=== PATIENT | female | born 1960 | race Caucasian/White ===

== ENCOUNTER 2019-09-26 09:36 | Outpatient (CLI) | payer MEDICARE, MEDICAID, SELFPAY ==
--- NOTE | 2019-09-26 09:44 | MM_ITS ---
WS: [id number] BILATERAL DIGITAL SCREENING MAMMOGRAPHY WITH CAD CLINICAL INFORMATION: SCREENING HISTORY: Screening mammogram. No current complaints. COMPARISON: June 18, 2017 TECHNIQUE: Bilateral CC and MLO views. FINDINGS: Scattered fibroglandular densities bilaterally. No suspicious focal mass, asymmetry, calcifications, or architectural distortion. Stable intramammary lymph nodes. No evidence of malignancy. MM/[place] [id number] IMPRESSION: BI-RADS: 2-Benign FOLLOW UP: 1 Year Follow-up Recommend return to annual screening mammography.
== END 2019-09-26 09:37 | disposition home or self-care (01) ==
LOC: RADSHAW 09:41
PROVIDERS: PCP Family Medicine; Visit Provider Family Medicine
DX: Z12.31 Encounter for screening mammogram for malignant neoplasm of breast (principal)
CPT/HCPCS: 77067

== ENCOUNTER 2021-02-25 10:05 | Outpatient (CLI) | payer MEDICARE, MEDICAID, SELFPAY ==
--- NOTE | 2021-02-25 10:13 | MM_ITS ---
WS: [id number] BILATERAL DIGITAL SCREENING MAMMOGRAPHY WITH CAD CLINICAL INFORMATION: SCREENING HISTORY: Screening mammogram. No current complaints. COMPARISON: September 26, 2019 TECHNIQUE: Bilateral CC and MLO views. FINDINGS: Scattered fibroglandular densities bilaterally. Stable benign punctate calcifications. Stable intrama mmary lymph nodes. No suspicious focal mass, asymmetry, calcifications, or architectural distortion. No evidence of malignancy. MM/[place] [id number] IMPRESSION: BI-RADS: 2-Benign FOLLOW UP: 1 Year Follow-up Recommend return to annual screening mammography.
== END 2021-02-25 10:06 | disposition home or self-care (01) ==
LOC: RADSHAW 10:11
PROVIDERS: PCP Family Medicine; Visit Provider Family Medicine
DX: Z12.31 Encounter for screening mammogram for malignant neoplasm of breast (principal)
CPT/HCPCS: 77067

== ENCOUNTER 2021-07-08 06:24 | Outpatient (CLI) | payer MEDICARE, MEDICAID, SELFPAY ==
--- NOTE | 2021-07-08 06:38 | US_ITS ---
WS: [id number] RENAL ULTRASOUND HISTORY: PROTEINURIA, DIABETES MELLITUS TYPE 2 COMPARISON: None. Technically limited evaluation due to body habitus. TECHNIQUE: 2-D and color Doppler imaging of the kidney submitted. Right kidney: 9.7 cm x 4.7 cm x 5.9 cm. Normal size kidney. There is minimal thinning of the renal cortex. Cortex measures 1.0 cm. No mass or hydronephrosis. Left kidney: 9.5 cm x 3.7 cm x 5.0 cm. Normal size kidney. No hydronephrosis. Cortex is normal at 1.1 cm. No mass. Aorta: Normal. Urinary Bladder: Minimally distended and visualized due to body habitus. US/US renal BI* [id number] IMPRESSION: 1. No hydronephrosis or renal mass identified. 2. Very mild thinning RIGHT renal cortex.
== END 2021-07-08 06:25 | disposition home or self-care (01) ==
LOC: RAD 06:26
PROVIDERS: PCP Family Medicine; Visit Provider Family Medicine
DX: R80.9 Proteinuria, unspecified (principal); E11.21 Type 2 diabetes mellitus with diabetic nephropathy; I10 Essential (primary) hypertension
CPT/HCPCS: 76770

== ENCOUNTER 2021-09-02 09:09 | Outpatient (CLI) | payer MEDICARE, MEDICAID, SELFPAY ==
[2021-09-02 10:06] LABS: Basophils # 0.1 10^3/uL (0.0-0.1); Basophils % 0.9 %; Eosinophils # 0.2 10^3/uL (0.0-0.8); Eosinophils % 2.5 %; Hematocrit 45.1 % (37.0-47.0); Hemoglobin 14.3 g/dL (11.5-15.3); Lymphocytes # 2.2 10^3/uL (0.8-4.8); Lymphocytes % 34.6 %; Mean Corpuscular HGB Conc 31.7 g/dL (30.0-36.0); Mean Corpuscular Hemoglobin 29.6 pg (28.0-34.0); Mean Corpuscular Volume 93.4 fl (81-99); Mean Platelet Volume 10.8 fL (7.4-10.4); Monocytes # 0.6 10^3/uL (0.2-0.9); Monocytes % 8.7 %; Neutrophils # 3.42 10^3/uL (1.8-7.7); Neutrophils % 52.8 %; Nucleated Red Blood Cells % 0 %; Platelet Count 296 10^3/cmm (130-400); Red Blood Count 4.83 10^6/uL (4.1-5.3); White Blood Count 6.5 10^3/uL (4.0-10.0)
[2021-09-02 10:46] LABS: Alanine Aminotransferase 12 U/L (0-33); Albumin Level 3.9 g/dL (3.5-5.2); Alkaline Phosphatase 109 IU/L (35-105); Anion Gap 14.6 (5-19); Aspartate Amino Transferase 19 U/L (0-32); Blood Urea Nitrogen 17 mg/dL (6-20); Carbon Dioxide 25 mmol/L (22-29); Chloride 101 mmol/L (98-107); Globulin 3.9 g/dL (1.3-4.6); Glucose 113 mg/dL (65-115); Osmolality Calculated 284 mOsm/kg (285-295); Phosphorus 3.5 mg/dL (2.5-4.5); Potassium 4.6 mmol/L (3.5-5.1); Sodium 136 mmol/L (136-145); Total Bilirubin 0.4 mg/dL (0.15-1.2); Total Protein 7.8 g/dL (6.6-8.7)
[2021-09-02 11:14] LABS: Parathyroid Hormone 74.2 pg/mL (15-65)
[2021-09-02 11:18] LABS: 25 Hydroxy Vitamin D > 100 ng/mL (30-100)
== END 2021-09-02 09:10 | disposition home or self-care (01) ==
PROVIDERS: PCP Family Medicine; Visit Provider Internal Medicine Cardiovascular Disease
DX: R80.9 Proteinuria, unspecified (principal)
CPT/HCPCS: 80053; 82306; 82310; 83970; 84100; 85025

== ENCOUNTER 2021-09-03 15:16 | Outpatient (CLI) | payer MEDICARE, MEDICAID, SELFPAY ==
[2021-09-03 18:02] LABS: Collection Time Urine 1420; Total Volume Urine 2700 ml
[2021-09-03 18:08] LABS: Urine Creatinine 61 mg/dL (28-217)
[2021-09-03 18:13] LABS: Creatinine Urine, Random 60 mg/dL (28-217); Microalbumin Random Urine 3 ug/dL (0-20)
[2021-09-03 18:25] LABS: Microalbum Creatinine Ratio Ur 50 mg/dL (0-20)
[2021-09-03 18:40] LABS: Phosphorus 24 HR Urine 54.8 g/24 HR (0.4-1.3); Phosphorus Urine 20.3 mg/dL
[2021-09-03 18:54] LABS: Urea Nitrogen,Urine Random 203 mg/dL
[2021-09-03 19:21] LABS: Bilirubin Urine Neg (Negative); Blood Urine Neg (Negative); Glucose Urine UA Norm (Normal); Ketones Urine Negative (Negative); Leukocyte Esterase Urine Negative (Negative); Nitrate Urine Negative (Negative); Protein Urine Neg (Negative); Specific Gravity, Urine 1.005 (1.005-1.030); Urine Appearance Clear (CLEAR); Urine Color Yellow (Yellow); Urobilinogen Urine Norm (Negative); pH Urine 7 (5-7)
[2021-09-03 19:22] LABS: Bacteria Urine TRACE /hpf; Squamous Epithelial Cell Urine 0-4 /hpf (0-5); WBC Urine 0-4 /hpf (0-5)
[2021-09-03 19:24] LABS: Add Urine Culture? No
== END 2021-09-03 15:17 | disposition home or self-care (01) ==
LOC: LAB 15:19
PROVIDERS: PCP Family Medicine; Visit Provider Family Medicine
DX: Z01.89 Encounter for other specified special examinations (principal)
CPT/HCPCS: 81001; 82044; 82570; 84105; 84540

== ENCOUNTER 2021-10-04 10:34 | Outpatient (CLI) | payer MEDICARE, MEDICAID, SELFPAY ==
[2021-10-04 11:31] LABS: Glomerular Filtration Rate 56.7 mL/min (90-130)
[2021-10-04 11:35] LABS: Urine Creatinine 56 mg/dL (28-217); Urine Protein Random 11 mg/dL
[2021-10-04 11:57] LABS: Total Volume Urine 2250 ml
[2021-10-04 11:58] LABS: Creatinine Clearance, Urine 90 mL/Min (88-128); Creatinine, Urine (Cre Clear) 56 mg/dL (28-217); Patient Weight 342.4 Lbs
== END 2021-10-04 10:35 | disposition home or self-care (01) ==
LOC: LAB 10:35
PROVIDERS: PCP Family Medicine; Visit Provider Family Medicine
DX: Z01.89 Encounter for other specified special examinations (principal)
CPT/HCPCS: 36415; 82570; 82575; 84156; 84540

== ENCOUNTER → 2021-11-18 08:37 | Outpatient (BNVA) | payer MEDICARE, MEDICAID, SELFPAY | PROVIDERS: PCP Family Medicine; Visit Provider Nurse Practitioner Women's Health | DX: Z01.419 Encounter for gynecological examination (general) (routine) without abnormal findings (principal); E66.9 Obesity, unspecified | CPT/HCPCS: 87624 ==

== ENCOUNTER → 2021-11-27 07:50 | Outpatient (BNVA) | payer MEDICARE, MEDICAID, SELFPAY | PROVIDERS: PCP Family Medicine; Visit Provider Nurse Practitioner Women's Health | DX: R89.6 Abnormal cytological findings in specimens from other organs, systems and tissues (principal) | CPT/HCPCS: 76830 ==

== ENCOUNTER 2022-02-13 13:04 | Outpatient (CLI) | payer MEDICARE, MEDICAID, SELFPAY ==
[2022-02-13 18:43] LABS: Sodium, Urine Result 109 mmol/L; Urine Creatinine 112 mg/dL (28-217)
[2022-02-13 18:48] LABS: Microalbumin Result 23.2 mg/dL
[2022-02-13 18:50] LABS: Microalbumin 24 Hour Result 232 mg/24HR (0-30); Microalbumin Total Volume 1000 mL; Total Volume Urine 1000 ml; Total Volume, Urine 1000 mL
[2022-02-15 09:48] LABS: CREATININE, 24 HOUR URINE 1.08 g/24 h (0.50-2.15); PROTEIN, TOTAL, 24 HR UR 390 mg/24 h (<150); Protein/Creatinine Ratio 0.361 (<0.150); Protein/Creatinine Ratio 361 mg/g creat (<150)
[2022-02-17 15:57] LABS: ALBUMIN 77 %; ALPHA-1-GLOBULINS 3 %; ALPHA-2-GLOBULINS 3 %; BETA GLOBULINS 13 %; GAMMA GLOBULINS 4 %
== END 2022-02-13 13:05 | disposition home or self-care (01) ==
PROVIDERS: Internal Medicine; PCP Family Medicine; Visit Provider Internal Medicine Nephrology
DX: I12.9 Hypertensive chronic kidney disease with stage 1 through stage 4 chronic kidney disease, or unspecified chronic kidney disease (principal); N18.30 Chronic kidney disease, stage 3 unspecified
CPT/HCPCS: 81001; 82043; 82570; 84166; 84300; 86335

== ENCOUNTER 2022-02-17 09:25 | Outpatient (CLI) | payer MEDICARE, MEDICAID, SELFPAY ==
[2022-02-17 09:54] LABS: Basophils % 0.8 %; Eosinophils % 2.9 %; Hematocrit 43.3 % (37.0-47.0); Hemoglobin 14.1 g/dL (11.5-15.3); Lymphocytes % 43.5 %; Mean Corpuscular HGB Conc 32.6 g/dL (30.0-36.0); Mean Corpuscular Hemoglobin 30.7 pg (28.0-34.0); Mean Corpuscular Volume 94.1 fl (81-99); Monocytes % 5.9 %; Neutrophils % 46.7 %; Platelet Count 242 10^3/cmm (130-400); Red Cell Distribution Width 12.6 % (12.1-15.1)
[2022-02-17 09:55] LABS: Basophils # 0.1 10^3/uL (0.0-0.1); Eosinophils # 0.2 10^3/uL (0.0-0.8); Lymphocytes # 2.6 10^3/uL (0.8-4.8); Monocytes # 0.4 10^3/uL (0.2-0.9); Neutrophils # 2.78 10^3/uL (1.8-7.7); Nucleated Red Blood Cells % 0 %
[2022-02-17 10:12] LABS: Anion Gap 14.2 (5-19); Blood Urea Nitrogen 10 mg/dL (6-20); Calcium 9.5 mg/dL (8.5-10.5); Carbon Dioxide 26 mmol/L (22-29); Chloride 102 mmol/L (98-107); Glomerular Filtration Rate 56.7 mL/min (90-130); Glucose 95 mg/dL (65-115); Magnesium 1.7 mg/dL (1.7-2.3); Osmolality Calculated 285 mOsm/kg (285-295); Potassium 4.2 mmol/L (3.5-5.1); Sodium 138 mmol/L (136-145)
== END 2022-02-17 09:26 | disposition home or self-care (01) ==
LOC: LAB 09:25
PROVIDERS: Internal Medicine; PCP Family Medicine; Visit Provider Internal Medicine Nephrology
DX: R80.9 Proteinuria, unspecified (principal); N18.30 Chronic kidney disease, stage 3 unspecified; I10 Essential (primary) hypertension
CPT/HCPCS: 80048; 83735; 85025

== ENCOUNTER 2022-05-26 08:36 | Outpatient (CLI) | payer MEDICARE, MEDICAID, SELFPAY ==
--- NOTE | 2022-05-26 09:00 | MM_ITS ---
WS: [id number] BILATERAL SCREENING DIGITAL TOMOSYNTHESIS MAMMOGRAM WITH CAD HISTORY: Z12.39 - Encounter for other screening for malignant neop... COMPARISON: 02/25/2021, 09/26/2019 Bilateral CC and MLO views with tomosynthesis and synthetic mammography submitted. Computer aided det ection analyzed. Breast composition: There are scattered areas of fibroglandular density. No suspicious masses, microc alcifications or architectural distortion. Stable bilateral breast. Small intramammary lymph nodes an d calcifications. MM/[place] [id number] IMPRESSION: BI-RADS: 2-Benign FOLLOW UP: 1 Year Follow-up
== END 2022-05-26 08:37 | disposition home or self-care (01) ==
LOC: RAD 08:39
PROVIDERS: PCP Family Medicine; Visit Provider Family Medicine
DX: Z12.31 Encounter for screening mammogram for malignant neoplasm of breast (principal)
CPT/HCPCS: 77063; 77067

== ENCOUNTER 2022-09-01 11:16 | Outpatient (CLI) | payer MEDICARE, MEDICAID, SELFPAY ==
[2022-09-01 17:33] LABS: Urine Total Protein 7.9 mg/dL (0-150)
[2022-09-01 18:10] LABS: Total Volume, Urine 825 mL; Urine Total Protein 24 Hour 65.2 mg/24hr (0-150)
[2022-09-01 18:11] LABS: Total Volume 825 mL
== END 2022-09-01 11:17 | disposition home or self-care (01) ==
PROVIDERS: PCP Family Medicine; Visit Provider Internal Medicine Nephrology
DX: Z03.89 Encounter for observation for other suspected diseases and conditions ruled out (principal)
CPT/HCPCS: 84156; 84540

== ENCOUNTER → 2022-12-08 11:00 | Outpatient (BNVA) | payer MEDICARE, MEDICAID, SELFPAY | PROVIDERS: PCP Family Medicine; Visit Provider Nurse Practitioner Women's Health | DX: Z12.4 Encounter for screening for malignant neoplasm of cervix (principal) | CPT/HCPCS: 87624 ==

== ENCOUNTER 2023-05-28 09:37 | Outpatient (CLI) | payer MEDICARE, MEDICAID, SELFPAY ==
--- NOTE | 2023-05-28 09:50 | MM_ITS ---
WS: [id number] SCREENING DIGITAL TOMOSYNTHESIS MAMMOGRAM WITH CAD HISTORY: SCREENING COMPARISON: 05/26/2022, 02/25/2021 Bilateral CC and MLO with tomosynthesis views submitted. Synthetic mammography reviewed. Computer aid ed detection analyzed. Breast composition: There are scattered areas of fibroglandular density. No suspicious masses, microc alcifications or architectural distortion. Well-circumscribed mass in the posterior LEFT breast is pr obably a lymph node. This has been present on several prior studies. IMPRESSION: MM/[place] [id number] BI-RADS: 2-Benign FOLLOW UP: 1 Year Follow-up
== END 2023-05-28 09:38 | disposition home or self-care (01) ==
LOC: RAD 09:38
PROVIDERS: PCP Family Medicine; Visit Provider Family Medicine
DX: Z12.31 Encounter for screening mammogram for malignant neoplasm of breast (principal); R92.323 Mammographic fibroglandular density, bilateral breasts; N63.20 Unspecified lump in the left breast, unspecified quadrant
CPT/HCPCS: 77063; 77067

== ENCOUNTER 2023-11-04 11:19 | Outpatient (CLI) | payer MEDICAID, OTHER, SELFPAY ==
--- NOTE | 2023-11-04 11:36 | XRR_ITS ---
PROCEDURE INFORMATION: Exam: XR Left Knee Exam date and time: 11/04/2023 11:50 AM Age: 63 years old Clinical indication: Left; Patient HX: Lt knee pain that radiates upward x 5 days, no specific injury; Additional info: L knee pain TECHNIQUE: Imaging protocol: Radiologic exam of the left knee. Views: 3 views. COMPARISON: CR XR foot LT min 3V* [id number] 03/09/2019 9:41 AM FINDINGS: Bones/joints: Normal. Soft tissues: Normal. XR/XR knee LT 3V* [id number] IMPRESSION: No acute findings.
== END 2023-11-04 11:20 | disposition home or self-care (01) ==
LOC: RAD 11:26
PROVIDERS: PCP Family Medicine; Visit Provider Family Medicine
DX: M25.562 Pain in left knee (principal)
CPT/HCPCS: 73562

== ENCOUNTER 2024-02-29 18:21 | Emergency (ER) | payer MEDICARE, MEDICAID, SELFPAY ==
--- NOTE | 2024-02-29 18:26 | XRR_ITS ---
PROCEDURE INFORMATION: Exam: XR Right Foot Exam date and time: 02/29/2024 6:43 PM Age: 63 years old Clinical indication: Pain; Foot; Right; Additional info: Injury TECHNIQUE: Imaging protocol: Radiologic exam of the right foot. Views: 3 or more views. COMPARISON: CR (LOW EXM, ) 02/29/2024 6:43 PM FINDINGS: Bones/joints: Nondisplaced fracture along the distal aspect of the 5th metatarsal. No definite intra-articular extension. No dislocation. Soft tissues: Normal. XR/XR foot RT min 3V* [id number] IMPRESSION: Nondisplaced 5th metatarsal shaft fracture.
--- NOTE | 2024-02-29 18:26 | XRR_ITS ---
PROCEDURE INFORMATION: Exam: XR Right Ankle Exam date and time: 02/29/2024 6:43 PM Age: 63 years old Clinical indication: Pain; Ankle; Right; Additional info: Fall TECHNIQUE: Imaging protocol: Radiologic exam of the right ankle. Views: 3 or more views. COMPARISON: CR XR foot RT min 3V* [id number] 02/29/2024 6:43 PM FINDINGS: Bones/joints: No acute fracture or dislocation. Tiny posterior calcaneal enthesophyte. Soft tissues: Normal. XR/XR ankle RT min 3V* [id number] IMPRESSION: No acute findings.
[2024-02-29 18:57] VITALS: BP 172/84; PULSE 76; RESP 17; TEMP 36.6; O2SAT 99; BMI 58.4
--- NOTE | 2024-02-29 20:17 | ED_ITS ---
HPI - Fall General: Chief Complaint: Fall Stated Complaint: right foot injury from fall Time Seen by Provider: 02/29/24 18:50 History of Present Illness: Patient was at [facility] today and was tried get on exam table and fell forward. Some pain in her right foot laterally midfoot. No other injuries. No head injury. No loss of consciousness. She is neurovascularly intact. She says she had broke her foot before and when she had a cast within 24 hours her whole leg look like chopped meat . Related Data Home Medications Medication Instructions Recorded Confirmed amlodipine 10 mg tablet 10 mg PO DAILY 05/31/19 02/29/24 aspirin 81 mg tablet,delayed 81 mg PO DAILY 05/31/19 02/29/24 release dulaglutide 0.75 mg/0.5 mL SUBCUT 05/31/19 02/29/24 subcutaneous pen injector (Trulicity) lisinopril 40 mg tablet 40 mg PO DAILY 05/31/19 02/29/24 topiramate 100 mg tablet (Topamax) 100 mg PO DAILY 05/31/19 02/29/24 albuterol sulfate 2.5 mg/3 mL 2.5 mg inhalation Q4H PRN 11/18/21 02/29/24 (0.083 %) solution for nebulization atorvastatin 40 mg tablet 40 mg PO DAILY 11/18/21 02/29/24 cetirizine 10 mg tablet (24Hour 10 mg PO DAILY PRN 11/18/21 02/29/24 Allergy) glipizide 2.5 mg tablet, extended 2.5 mg PO DAILY 12/08/22 02/29/24 release 24 hr hydrochlorothiazide 25 mg tablet 12.5 mg PO DAILY 02/29/24 02/29/24 Previous Rx's Medication Instructions Recorded hydrocodone 5 mg-acetaminophen 325 1 tab PO Q8H PRN pain #14 tabs 02/29/24 mg tablet polyethylene glycol 3350 17 17 g PO DAILY #510 grams 02/29/24 gram/dose oral powder (Miralax) Allergies Allergy/AdvReac Type Severity Reaction Status Date / Time codeine Allergy ADR-Drowsy Verified 02/29/24 19:07 Review of Systems Narrative: Constitutional symptoms: Negative except as documented in HPI. Skin symptoms: Negative except as documented in HPI. Eye symptoms: Negative except as documented in HPI. ENMT symptoms: Negative except as documented in HPI. Respiratory symptoms: Negative except as documented in HPI. Cardiovascular symptoms: Negative except as documented in HPI. Gastrointestinal symptoms: Negative except as documented in HPI. Genitourinary symptoms: Negative except as documented in HPI. Musculoskeletal symptoms: Negative except as documented in HPI. Neurologic symptoms: Negative except as documented in HPI. Psychiatric symptoms: Negative except as documented in HPI. Endocrine symptoms: Negative except as documented in HPI. PFSH ED PFSH: Medical History Asthma CVA (cerebral vascular accident) (~03/1999) Dyslipidemia Hammertoe, bilateral Hypertension No pertinent past medical history neghx: thyroid,dvt/pe PCP: [facility] Obesity Pes planus of both feet Tailor's bunionette, bilateral Type 2 diabetes mellitus with diabetic polyneuropathy Surgical History History of conization of cervix She is not sure but she thinks she has had a procedure done on her cervix at the age of 32 for an abnormal Pap smear. Reports normal Pap smears since then Hx laparoscopic cholecystectomy (~1990) Hx of tonsillectomy at age 15 Family History Sister Cervical cancer dx age 30's Father Diabetes Heart disease Grandfather Heart disease Maternal Mother Thyroid disease thyroid cancer Denies family history of Colon cancer Ovarian cancer Hypercholesteremia Breast cancer Hypertension Uterine cancer Stroke Physical Exam Narrative: EXAM NARRATIVE: General: Alert, no acute distress. Skin: warm and dry Head: Normocephalic Neck: Trachea midline Eye: Extraocular movements are intact. Ears, nose, mouth and throat: Oral mucosa moist Respiratory: Respirations are non-labored Musculoskeletal: Pain to palpation of the lateral mid right foot. No obvious deformity. Neurovascularly intact. Neurological: Alert and oriented, No focal neurological deficit observed. Psychiatric: Cooperative, appropriate mood & affect. Course Vital Signs: Vital signs: Vital Signs Temperature 97.9 F 02/29/24 18:57 Pulse Rate 76 02/29/24 18:57 Respiratory Rate 17 02/29/24 18:57 Blood Pressure 172/84 02/29/24 18:57 Pulse Oximetry 99 02/29/24 18:57 Oxygen Delivery Me thod Room Air 02/29/24 18:57 MDM - Fall Medical Decision Making X-ray of the right foot shows a midshaft metatarsal fracture of the fifth metatarsal. This was reviewed and interpreted by myself the emergency room kaley harris. I also reviewed the radiology report. Consultation: I spoke with Dr. Davidson about the patient as she had had complications with the splint in the past and he recommends a postsurgical shoe. Assessment and plan: Right fifth metatarsal fracture ?Graettinger and postsurgical shoe placement - Discharged home - Discussed plan with patient. Answered any questions. - Evaluation and treatment of this problem were appropriate in the emergency setting. Lab Data Radiology Impressions Ankle X-Ray 02/29/24 18:26 IMPRESSION: No acute findings. Foot X-Ray 02/29/24 18:26 IMPRESSION: Nondisplaced 5th metatarsal shaft fracture. All radiology interpretation(s) finalized by discharge Discharge Plan Discharge Patient Disposition: Home Clinical Impression: Fracture of fifth metatarsal bone of right foot Qualifiers: Encounter type: initial encounter Fracture type: closed Fracture alignment: nondisplaced Qualified Code(s): S92.354A - Nondisplaced fracture of fifth metatarsal bone, right foot, initial encounter for closed fracture Condition: Stable Prescriptions: New hydrocodone-acetaminophen 5-325 mg tablet 1 tab PO Q8H PRN (Reason: pain) Qty: 14 0RF Rx Instructions: Take 1/2 to 1 tab every 8 hours as needed for pain polyethylene glycol 3350 [Miralax] 17 gram/dose powder 17 g PO DAILY Qty: 510 0RF Rx Instructions: Take 1 scoop daily while taking pain medications. No Action topiramate [Topamax] 100 mg tablet 100 mg PO DAILY lisinopril 40 mg tablet 40 mg PO DAILY aspirin 81 mg tablet,delayed release (DR/EC) 81 mg PO DAILY amlodipine 10 mg tablet 10 mg PO DAILY Trulicity 0.75 mg/0.5 mL pen injector SUBCUT hydrochlorothiazide 25 mg tablet 12.5 mg PO DAILY glipizide 2.5 mg tablet extended release 24hr 2.5 mg PO DAILY cetirizine [24Hour Allergy] 10 mg tablet 10 mg PO DAILY PRN atorvastatin 40 mg tablet 40 mg PO DAILY albuterol sulfate 2.5 mg /3 mL (0.083 %) solution for nebulization 2.5 mg inhalation Q4H PRN Discharge Orders: Discharge ED (Routine); Ordered 02/29/24 Ordered By: Odilia Clark Referrals: Mukund Dc MD [Primary Care Provider] - Stevie Davidson DPM [Physician] - 4-7 days (Please follow-up with Dr. Davidson or Dr. Hay for the next 3 to 5 days) Discharge Diet: Usual diet Discharge Activity: Limit activity as instructed Patient Instructions: Opioid Safety, Pain Management Activity Restrictions/Additional Instructions: Thank you for choosing [facility] for your healthcare needs today. Please realize this is an emergency room and that we are providing you with a medical screening exam and this may not be complete and all inclusive of all the testing and or work up that you may need to determine your ailment or severity of your illness. You have been screened and evaluated and felt safe for discharge. Health conditions do change or evolve sometimes and as such it is important that you follow up with your Primary Doctor to be re checked, 3-5 days is a general good time frame for follow up. You are always welcome to return to the ED for re assessment if your symptoms are worsening or you have new concerns Coding Level of Care Code ED Family Practice Medical Doctor for Tori Roper
--- NOTE | 2024-02-29 20:34 | PC.NURSE ---
post op shoe was placed on the pts right foot at this time
[2024-02-29 22:16] VITALS: BP 163/79; PULSE 71; RESP 18; O2SAT 99
== END 2024-02-29 22:18 | disposition home or self-care (01) ==
PROVIDERS: Emergency Provider Emergency Medicine; PCP Family Medicine
DX: S92.354A Nondisplaced fracture of fifth metatarsal bone, right foot, initial encounter for closed fracture (principal); Z79.82 Long term (current) use of aspirin; E11.42 Type 2 diabetes mellitus with diabetic polyneuropathy; Z86.73 Personal history of transient ischemic attack (TIA), and cerebral infarction without residual deficits; I10 Essential (primary) hypertension; W19.XXXA Unspecified fall, initial encounter
CPT/HCPCS: 73610; 73630; 99283

== ENCOUNTER → 2024-03-20 13:16 | Outpatient (BNVA) | payer MEDICARE, MEDICAID, SELFPAY | PROVIDERS: PCP Family Medicine; Visit Provider Podiatrist Foot & Ankle Surgery | DX: E11.42 Type 2 diabetes mellitus with diabetic polyneuropathy; S92.351A Displaced fracture of fifth metatarsal bone, right foot, initial encounter for closed fracture; W17.89XA Other fall from one level to another, initial encounter; Y92.531 Health care provider office as the place of occurrence of the external cause | CPT/HCPCS: 73630; 99203 ==

== ENCOUNTER → 2024-04-10 13:30 | Outpatient (BNVA) | payer MEDICARE, MEDICAID, SELFPAY | PROVIDERS: PCP Family Medicine; Visit Provider Podiatrist Foot & Ankle Surgery | DX: M79.671 Pain in right foot (principal); E11.42 Type 2 diabetes mellitus with diabetic polyneuropathy; S92.351A Displaced fracture of fifth metatarsal bone, right foot, initial encounter for closed fracture; X58.XXXA Exposure to other specified factors, initial encounter | CPT/HCPCS: 73630; 99213 ==

== ENCOUNTER → 2024-05-26 14:35 | Outpatient (BNVA) | payer MEDICARE, MEDICAID, SELFPAY | PROVIDERS: PCP Family Medicine; Visit Provider Nurse Practitioner Women's Health | DX: R53.83 Other fatigue (principal) | CPT/HCPCS: 82306; 84439; 84443 ==

== ENCOUNTER 2024-05-29 08:44 | Outpatient (CLI) | payer MEDICARE, MEDICAID, SELFPAY ==
--- NOTE | 2024-05-29 08:46 | MM_ITS ---
WS: [id number] SCREENING DIGITAL BREAST TOMOSYNTHESIS MAMMOGRAM WITH CAD HISTORY: Z12.31 - Encounter for screening mammogram for malignant ... COMPARISON: 05/28/2023, 05/26/2022 and 02/25/2021 Bilateral CC and MLO with tomosynthesis and synthetic mammography submitted. Computer aided detection analyzed. Breast composition: There are scattered areas of fibroglandular density. Incomplete inclusion of all of the axillary tail. The remaining breast demonstrate normal parenchymal pattern with a few scattered calcifications. No new masses are identified. There is no distortion. No nipple retraction. MM/MM scr tomosynthesis [id number] IMPRESSION: BI-RADS: 0 - Incomplete: Need additional imaging evaluation. FOLLOW UP: Need Additional Imaging Recommend additional imaging of the axillary tails. Incomplete inclusion of the axillary tails on both the RIGHT and LEFT breast. Patient should not be charge d for additional imaging.
--- NOTE | 2024-05-29 08:46 | XR_ITS ---
WS: [id number] DEXA (DUAL ENERGY X-RAY ABSORPTIOMETRY) Bone mineral density was performed using a [employer] machine. HISTORY: Z78.0 - Asymptomatic menopausal state COMPARISON: None available. Left forearm BMD: 0.818 g/cm2. T score: -0.7 Z score: 0.4 Total hip BMD: Left: 1.051 g/cm2. T score: 0.3 Z score: 0.5 Right: 0.944 g/cm2. T score: -0.5 Z score: -0.3 10 year probability of a major osteoporotic fracture is 5.1%. XR/XR DEXA axial skeleton* [id number] IMPRESSION: NORMAL BONE MINERAL DENSITY based upon the WHO classification for females.
== END 2024-05-29 08:45 | disposition home or self-care (01) ==
PROVIDERS: PCP Family Medicine; Visit Provider Family Medicine
DX: Z12.31 Encounter for screening mammogram for malignant neoplasm of breast (principal); Z78.0 Asymptomatic menopausal state; R92.323 Mammographic fibroglandular density, bilateral breasts; R92.1 Mammographic calcification found on diagnostic imaging of breast; R59.0 Localized enlarged lymph nodes
CPT/HCPCS: 77063; 77067; 77080

== ENCOUNTER 2024-07-10 14:14 | Outpatient (CLI) | payer MEDICARE, MEDICAID, SELFPAY ==
--- NOTE | 2024-07-10 14:17 | XR_ITS ---
WS: [id number] Exam: XR knee RT 3V* [id number] Date/Time of Exam: 07/10/2024 2:32 PM Reason For Exam: R KNEE PAIN No acute fracture. There is early degenerative narrowing of the medial joint compartment and calcification of the medial meniscus. There may be medial extrusion of the medial meniscus. No joint effusion is noted. Soft tissues are unremarkable. XR/XR knee RT 3V* [id number] IMPRESSION: 1. Degenerative narrowing of the medial joint compartment. 2. Calcification and medial extrusion of the medial meniscus.
== END 2024-07-10 14:15 | disposition home or self-care (01) ==
PROVIDERS: PCP Family Medicine; Visit Provider Nurse Practitioner Family
DX: M17.11 Unilateral primary osteoarthritis, right knee (principal); M23.303 Other meniscus derangements, unspecified medial meniscus, right knee; R93.6 Abnormal findings on diagnostic imaging of limbs
CPT/HCPCS: 73562

== ENCOUNTER → 2024-07-17 11:20 | Outpatient (BNVA) | payer MEDICARE, MEDICAID, SELFPAY | PROVIDERS: PCP Family Medicine; Visit Provider Orthopaedic Surgery | DX: M25.561 Pain in right knee (principal); G89.29 Other chronic pain | CPT/HCPCS: 73560; 73565; 99204 ==

== ENCOUNTER → 2024-08-14 09:27 | Outpatient (BNVA) | payer MEDICARE, MEDICAID, SELFPAY | PROVIDERS: PCP Family Medicine; Visit Provider Orthopaedic Surgery | DX: M25.551 Pain in right hip (principal) | CPT/HCPCS: 99213 ==

== ENCOUNTER 2024-08-29 07:30 | Outpatient (RCR) | payer MEDICARE, MEDICAID, SELFPAY | END 2024-09-16 23:59 | disposition home or self-care (01) | LOC: SPT 07:30 | PROVIDERS: Visit Provider Orthopaedic Surgery | DX: M25.551 Pain in right hip (principal) | CPT/HCPCS: 97110; 97161 ==

== ENCOUNTER → 2024-09-28 10:34 | Outpatient (BNVA) | payer MEDICARE, MEDICAID, SELFPAY | PROVIDERS: PCP Family Medicine; Visit Provider Orthopaedic Surgery | DX: M25.551 Pain in right hip (principal); M71.551 Other bursitis, not elsewhere classified, right hip | CPT/HCPCS: 99213 ==

== ENCOUNTER → 2024-10-10 12:49 | Outpatient (BNVA) | payer MEDICARE, MEDICAID, SELFPAY | PROVIDERS: PCP Family Medicine; Visit Provider Podiatrist Foot & Ankle Surgery | DX: E11.42 Type 2 diabetes mellitus with diabetic polyneuropathy (principal); L60.3 Nail dystrophy; E11.8 Type 2 diabetes mellitus with unspecified complications; S92.351A Displaced fracture of fifth metatarsal bone, right foot, initial encounter for closed fracture; G62.9 Polyneuropathy, unspecified; X58.XXXA Exposure to other specified factors, initial encounter | CPT/HCPCS: 11721; 99213 ==

== ENCOUNTER → 2024-11-16 08:39 | Outpatient (BNVA) | payer MEDICARE, MEDICAID, SELFPAY | PROVIDERS: PCP Family Medicine; Visit Provider Orthopaedic Surgery | DX: M25.551 Pain in right hip (principal); M70.61 Trochanteric bursitis, right hip | CPT/HCPCS: 99213 ==